=== PATIENT | female | born 1945 | race Caucasian/White ===

== ENCOUNTER 2021-02-24 04:29 | Day surgery (SDC) | payer OTHER, BC ==
[2021-02-20 16:31] VITALS: BMI 32.7
[2021-02-24] MEDS ORDERED: PROPOFOL 20 ML ONE ×2 (12:44)
[2021-02-24] MEDS ORDERED: DESFLURANE GAS 240 ML BOTTLE IH ONE (12:45)
[2021-02-24] MEDS ORDERED: BACITRACIN 15 GM TUBE TOPICAL OINTMENT ONE (13:00)
[2021-02-24] MEDS ORDERED: LIDOCAINE HCL 1% EPINEPHRINE 1:200,000 30 ML VIAL (PF) ONE (13:00)
[2021-02-24] MEDS ORDERED: ALBUTEROL SO4 0.083% IH SOL 2.5 MG/3 ML VIAL.NEB. NEB ONE (13:03)
[2021-02-24] MEDS ORDERED: ALBUTEROL SO4 HFA INHALER IH ONE (13:04)
[2021-02-24] MEDS ORDERED: SUCCINYLCHOLINE CHLORIDE 200 MG/10 ML SYRINGE ONE (13:07)
[2021-02-24] MEDS ORDERED: CLINDAMYCIN PHOSPHATE 600 MG/4 ML VIAL IVPB ONE (13:10)
[2021-02-24] MEDS ORDERED: LIDOCAINE 1%/EPI 1:100000 (50 ML MULTI DOSE VIAL) NR ONE (13:27)
[2021-02-24] MEDS ORDERED: BACITRACIN 15 GM TUBE TOPICAL OINTMENT TP ONE (13:31)
[2021-02-24] MEDS ORDERED: ONDANSETRON 4 MG/2 ML VIAL IVPUSH PRN (13:50)
[2021-02-24] MEDS ORDERED: LACTATED RINGERS SOLUTION 1,000 ML IV SCH (14:00)
[2021-02-24 17:40] VITALS: TEMP 97.7
[2021-02-24 17:43] VITALS: BP 118/53; PULSE 83
== END 2021-02-24 17:00 | disposition home or self-care (01) ==
LOC: JASU-SURG 04:29
PROVIDERS: ATTEND Urology
PROC: 0TSD0ZZ Reposition Urethra, Open Approach (ICD-10-PCS; principal; 2021-02-24 13:00)
DX: N39.3 Stress incontinence (female) (male) (principal)
CPT/HCPCS: 57288; C1771; 94760

== ENCOUNTER 2021-11-28 13:53 | Emergency (ER) | payer OTHER, BC ==
[2021-11-28 14:24] VITALS: BP 153/88; PULSE 67; TEMP 97.8; BMI 32.0
[2021-11-28] MEDS ORDERED: DIPHTH,PERTUSS(ACELL),TET 0.5 ML DISP.SYRIN IM ONE ×2 (16:37→16:49)
== END 2021-11-28 17:10 | disposition home or self-care (01) ==
LOC: FER 13:53
PROC: 3E0234Z Introduction of Serum, Toxoid and Vaccine into Muscle, Percutaneous Approach (ICD-10-PCS; principal; 2021-11-28)
DX: S09.93XA Unspecified injury of face, initial encounter (principal); W01.0XXA Fall on same level from slipping, tripping and stumbling without subsequent striking against object, initial encounter
CPT/HCPCS: 70450-TC; 70486-TC; 71045-TC-FY; 72125-TC; 90471; 90715; 99285-25